=== PATIENT | female | born 1950 | race African-American/Black ===

== ENCOUNTER 2024-06-08 22:12 | Emergency (ER) | payer OTHER ==
[~2024-06-08] VITALS: Ht 157.5 cm; Wt 105.0 kg
[2024-06-08 22:48] LABS: Basophils # (auto) 0 10 ^3/uL (0-0.2); Eosinophils # (auto) 0.1 10 ^3/uL (0-0.8); Lymphocytes % (auto) 9.5 % (10.0-50.0); Mean Corpuscular Hgb Conc. 32.4 g/dL (32.0-36.0); Nucleated Red Blood Cells % 0.1 %
[2024-06-08 22:49] LABS: Basophils % (auto) 0.5 % (0.0-2.0); Eosinophils % (auto) 1.6 % (0.0-7.0); Hematocrit 39.7 % (36.0-46.0); Hemoglobin 12.9 g/dL (12.2-16.2); Lymphocytes # (auto) 0.8 10 ^3/uL (0.4-5.4); Mean Corpuscular Hemoglobin 25.7 pg (28.0-32.0); Mean Corpuscular Volume 79.3 fL (80.0-100.0); Monocytes # (auto) 0.7 10 ^3/uL (0-1.3); Monocytes % (auto) 9.2 % (0.0-12.0); Neutrophils # (auto) 6.4 10 ^3/uL (1.6-8.6); Neutrophils % (auto) 79.2 % (37.0-80.0); Platelet Count (auto) 301 10^3/uL (140-450); Red Blood Cells 5.01 10^6/uL (4.0-5.20); Red Cell Distribution Width 19.2 % (11.8-14.3)
[2024-06-08 23:03] LABS: INR 1.1 (0.9-1.15); Partial Thromboplastin Time 26.2 SEC (24.5-34.5); Prothrombin Time 11.6 sec (9.3-11.8)
[2024-06-08 23:09] LABS: Alanine Aminotransferase 13 U/L (7-40); Albumin 3.8 g/dL (3.2-4.8); Alkaline Phosphatase 144 U/L (46-116); Anion Gap 5 (5-15); Aspartate Aminotransferase 17 U/L (13-40); BUN/Creatinine Ratio 17.6 (10.0-20.0); Bilirubin, Total 0.6 mg/dL (0.2-1.0); Blood Urea Nitrogen 29 mg/dL (9-23); Calcium 10.2 mg/dL (8.7-10.4); Carbon Dioxide 27 mmol/L (20-30); Chloride 108 mmol/L (98-107); Glucose 104 mg/dL (74-106); Potassium 4.1 mmol/L (3.5-5.1); Sodium 140 mmol/L (136-145); Total Protein 6.3 g/dL (5.7-8.2)
[2024-06-09] MEDS: dilTIAZem 25 MG/5 ML VIAL IV ONE (00:12)
[2024-06-09] MEDS: ONDANSETRON HCL 4 MG/2 ML VIAL IV ONE (00:12)
[2024-06-09] MEDS: MORPHINE SULFATE 4 MG/ML SYR/VIAL IV ONE (00:13)
[2024-06-09] MEDS: dilTIAZem 125mg/125ml BAG KIT 125 ML IV ONE (05:40)
[2024-06-09] MEDS: cefTRIAXone 1GM/50ML D5W 50 ML IV ONE (06:19)
[2024-06-09] MEDS: AZITHROMYCIN 500MG/ 250ML 250 ML IV ONE (06:28)
[2024-06-09 06:33] LABS: Urine Bacteria None Seen /hpf (None Seen)
[2024-06-09 06:58] LABS: Urine Blood Negative /uL (Negative); Urine Clarity Clear (Clear); Urine Color Yellow (Yellow); Urine Mucus FEW (None Seen); Urine Protein, UAD TRACE (Negative); Urine Urobilinogen Normal (Negative); Urine WBC 6 /hpf (0 - 5); Urine pH 5.5 (5.0-9.0)
[2024-06-09 07:45] VITALS: PULSE 94; RESP 13; O2SAT 94
[2024-06-09 08:55] VITALS: BP 100/73; PULSE 89; RESP 19; TEMP 97.8; O2SAT 96
== END 2024-06-09 09:26 | disposition short-term general hospital (02) ==
LOC: EDBD 22:12 → ER 22:12
DX: I48.92 Unspecified atrial flutter (principal); M89.50 Osteolysis, unspecified site; I10 Essential (primary) hypertension; Z98.890 Other specified postprocedural states
CPT/HCPCS: 36415; 71045; 74176; 80053; 81001; 83605; 83880; 84484; 85025; 85610; 85730; 93005; 96365; 96366; 96368; 96375; 99291; J0456; J0696; J2270; J2405